=== PATIENT | male | born 1995 | race Caucasian/White ===

== ENCOUNTER → 2017-09-20 | Outpatient (CLI) | payer BC | LOC: M WUC 11:46 | DX: R22.42 Localized swelling, mass and lump, left lower limb (principal) | CPT/HCPCS: 73610 ==

== ENCOUNTER 2019-07-06 04:59 | Emergency (ER) | payer OTHER, BC ==
[~2019-07-06] VITALS: Ht 182.9 cm; Wt 97.7 kg
[2019-07-06] MEDS ORDERED: ONDA4TAB6 PO (06:10)
[2019-07-06] MEDS ORDERED: ONDANSETRON 4 MG ORAL DISINTEGRATING TAB (Q0162 PER 1MG) PO ONE (06:15)
[2019-07-06 06:33] VITALS: BP 133/71
== END 2019-07-06 06:37 | disposition home or self-care (01) ==
LOC: M ED 04:59
DX: R11.2 Nausea with vomiting, unspecified (principal); T62.91XA Toxic effect of unspecified noxious substance eaten as food, accidental (unintentional), initial encounter; Z87.891 Personal history of nicotine dependence
CPT/HCPCS: 99284; Q0162